=== PATIENT | female | born 1955 | race Caucasian/White ===

== ENCOUNTER 2021-04-23 21:28 | Emergency (ER) | payer OTHER | END 2021-04-23 23:06 | disposition home or self-care (01) | LOC: ERS 21:28 | DX: H33.21 Serous retinal detachment, right eye (principal); E11.9 Type 2 diabetes mellitus without complications; I10 Essential (primary) hypertension; E78.5 Hyperlipidemia, unspecified; Z87.891 Personal history of nicotine dependence; Z79.899 Other long term (current) drug therapy ==

== ENCOUNTER 2021-04-24 10:24 | Day surgery (SDC) | payer OTHER ==
[2021-04-24] MEDS ORDERED: Fluorouracil 100 MG, EPINEPHrine 0.3 MG in Ophthalmic Irrigation Solution 500 ML IRR SCH (11:00)
[2021-04-24] MEDS ORDERED: [UNRECOGNIZED DRUG - OTHER] IRR SCH (11:15)
[2021-04-24] MEDS ORDERED: FLUOROURACIL IRR SCH (11:15)
[2021-04-24] MEDS ORDERED: EPINEPHRINE IRR SCH (11:15)
[2021-04-24] MEDS ORDERED: ENOXAPARIN SODIUM IRR SCH (11:15)
[2021-04-24 11:53] LABS: SARS-CoV-2 NAA Rapid Test Not Detected (NotDetected)
[2021-04-24] MEDS ORDERED: Cyclopentolate 1% Opth Drop 2 ML BOT ONE (11:59)
[2021-04-24] MEDS ORDERED: Phenylephrine 2.5% Ophth Soln 5 ML BOT ONE (11:59)
[2021-04-24] MEDS ORDERED: Fentanyl 250 MCG/5 ML VIAL ONE (12:30)
[2021-04-24] MEDS ORDERED: Midazolam HCl 2 mg/2 ml Vial ONE (12:30)
[2021-04-24] MEDS ORDERED: Triamcinolone 40 MG/ML VIAL ONE (12:31)
[2021-04-24] MEDS ORDERED: Bupivacaine PF 0.75% SDV 10 ML ONE (12:31)
[2021-04-24] MEDS ORDERED: Maxitrol 0.1% Opth Oint 3.5 GM TUBE ONE (12:31)
[2021-04-24] MEDS ORDERED: PROPOFOL 200 MG/20 ML VIAL ONE (12:31)
[2021-04-24] MEDS ORDERED: Lidocaine 4% PF 5 ML AMP ONE (12:31)
[2021-04-24] MEDS ORDERED: Enoxaparin Sodium 30 MG/0.3 ML SYRINGE ONE (12:31)
== END 2021-04-24 14:20 | disposition home or self-care (01) ==
LOC: SDC 10:24
PROVIDERS: ATTEND Ophthalmology Retina Specialist
PROC: 08T43ZZ Resection of Right Vitreous, Percutaneous Approach (ICD-10-PCS; principal; 2021-04-24)
DX: H33.021 Retinal detachment with multiple breaks, right eye (principal); Z88.0 Allergy status to penicillin; Z88.8 Allergy status to other drugs, medicaments and biological substances; Z20.822 Contact with and (suspected) exposure to COVID-19
CPT/HCPCS: 67025; 67108; U0002; J0171; J1650; J2250; J2704; J3010; J3301; J3490; J9190